=== PATIENT | male | born 1985 | race Caucasian/White ===

== ENCOUNTER 2016-07-27 07:24 | Emergency (ER) | payer BC ==
[2016-07-27 07:37] VITALS: TEMP 98.1; BMI 28.8
--- NOTE | 2016-07-27 08:25 | PDOC ---
*Physical Exam - Vital Signs Last Vital Signs Temp Pulse Resp BP Pulse Ox 98.1 F 72 18 149/66 100 07/27/16 07:34 07/27/16 07:34 07/27/16 07:34 07/27/16 07:34 07/27/16 07:34 - Physical Exam Comments: 07/27/16 08:25 MIDLEVEL NOTE Pt seen by Midlevel Provider under my direct supervision. Pt interviewed and examined. Ancillary studies reviewed. I agree with plan as outlined by Midlevel Provider. 07/27/16 11:14 Laboratory Results - last 24 hr 07/27/16 07/27/16 07/27/16 08:40 08:40 08:41 WBC 11.6 H RBC 5.63 H Hgb 17.0 H Hct 50.2 H MCV 89.2 MCHC 33.8 RDW 13.5 Plt Count 218 MPV 8.5 Neutrophils % 84.2 H Lymphocytes % 10.5 Monocytes % 4.4 Eosinophils % 0.4 Basophils % 0.5 Sodium 142 Potassium 4.6 Chloride 106 Carbon Dioxide 26 Anion Gap 10 BUN 23 H Creatinine 1.0 Creat Clearance w eGFR > 60 Random Glucose 97 Calcium 9.6 Total Bilirubin 0.4 AST 33 ALT 50 Alkaline Phosphatase 48 Total Protein 7.2 Albumin 4.1 Urine Color Yellow Urine Appearance Clear Urine pH 6.0 Ur Specific [place] 1.017 Urine Protein Negative Urine Glucose (UA) Negative Urine Ketones Negative Urine Blood Negative Urine Nitrite Negative Urine Bilirubin Negative Urine Urobilinogen Negative Ur Leukocyte Esterase Negative CT scan of the abdomen and pelvis without contrast There is a 3 mm right UVJ stone with minimal hydronephrosis Patient hydrated with 1 L of normal saline, and given Flomax, and Toradol ED Treatment Course - LABORATORY CBC & Chemistry Diagram: 07/27/16 08:40 07/27/16 08:40 *DC/Admit/Observation/Transfer Diagnosis at time of Disposition: Renal colic on right side - Discharge Dispostion Disposition: HOME Condition at time of disposition: Improved - Prescriptions Prescriptions: Tamsulosin HCl [Flomax] 0.4 mg PO DAILY #7 cap.er.24h Ibuprofen [Motrin -] 800 mg PO Q6H #30 tablet Tramadol HCl 50 mg PO Q6H #12 tablet MDD 200 mg - Referrals Referrals: Oscar Shrestha MD [Primary Care Provider] - Teddy Bojorquez MD [Staff Physician] - - Patient Instructions Printed Discharge Instructions: DI for Kidney Stones Additional Instructions: You have a 3mm kidney stone on the right near your bladder. There is an 80% chance that you will pass this stone in the next 3 days. You were given a cup with strainer in an attempt to retrieve this stone. You should follow up with urology in 1 week Take medications as directed and drink plenty of fluids - Post Discharge Activity Work/School Note: Back to Work
[2016-07-27] MEDS ORDERED: KETOROLAC TROMETHAMINE 30 MG/1 ML VIAL IVPUSH ONE (08:38)
[2016-07-27] MEDS ORDERED: KETOROLAC TROMETHAMINE 30 MG/1 ML VIAL ONE (08:46)
[2016-07-27 08:58] LABS: URINE APPEARANCE CLEAR; URINE BILIRUBIN NEGATIVE (NEGATIVE); URINE BLOOD NEGATIVE (NEGATIVE); URINE COLOR YELLOW; URINE GLUCOSE (UA) NEGATIVE (NEGATIVE); URINE KETONE NEGATIVE (NEGATIVE); URINE LEUK ESTERASE NEGATIVE (NEGATIVE); URINE NITRITE NEGATIVE (NEGATIVE); URINE PROTEIN NEGATIVE (NEGATIVE); URINE UROBILINOGEN NEGATIVE E.U./dl (0.2-1.0)
[2016-07-27 09:00] LABS: BASOPHIL 0.5 % (0-2.0); EOSINOPHIL 0.4 % (0-4.5); MCH 30.2 pg (25.7-33.7); MCHC 33.8 g/dl (32.0-35.9); MEAN CELL VOLUME 89.2 fl (80-96); MEAN PLT VOLUME 8.5 fl (7.5-11.1); NEUTROPHILS 84.2 % (42.8-82.8); PLATELET COUNT 218 K/MM3 (134-434); RDW 13.5 % (11.9-15.9); WHITE BLOOD COUNT 11.6 K/mm3 (4.0-10.0)
[2016-07-27] MEDS ORDERED: SODIUM CHLORIDE 1,000 ML IV STA (09:06)
--- NOTE | 2016-07-27 09:06 | PDOC ---
History of Present Illness - General Chief Complaint: Pain Stated Complaint: UPRT ABD PAIN Time Seen by Provider: 07/27/16 08:20 History Source: Patient - History of Present Illness Occurred: reports: this morning Pain Location: reports: other Past History - Past Medical History Allergies/Adverse Reactions: Allergies Allergy/AdvReac Type Severity Reaction Status Date / Time No Known Allergies Allergy Verified 07/27/16 07:34 Home Medications: Ambulatory Orders Ibuprofen [Motrin -] 800 mg PO Q6H #30 tablet 07/27/16 Tamsulosin HCl [Flomax] 0.4 mg PO DAILY #7 cap.er.24h 07/27/16 Tramadol HCl 50 mg PO Q6H #12 tablet MDD 200 mg 07/27/16 - Psycho/Social/Smoking Cessation Hx Anxiety: No Suicidal Ideation: No Smoking History: Never smoked Have you smoked in the past 12 months: No Information on smoking cessation initiated: No Hx Alcohol Use: No Drug/Substance Use Hx: No Substance Use Type: None Review of Systems - Review of Systems Constitutional: No: Chills, Fever ABD/GI: Yes: Nausea. No: Constipated, Diarrhea, Vomiting : Yes: Flank Pain. No: Burning, Dysuria, Frequency, Hematuria Musculoskeletal: Yes: Back Pain. No: Muscle Weakness *Physical Exam - Vital Signs Last Vital Signs Temp Pulse Resp BP Pulse Ox 98.1 F 72 18 149/66 100 07/27/16 07:34 07/27/16 07:34 07/27/16 07:34 07/27/16 07:34 07/27/16 07:34 - Physical Exam General Appearance: Yes: Appropriately Dressed. No: Apparent Distress HEENT: positive: Normal Voice. negative: Scleral Icterus (R), Scleral Icterus ( L) Neck: positive: Supple Respiratory/Chest: negative: Respiratory Distress Gastrointestinal/Abdominal: positive: Soft. negative: Tender Musculoskeletal: positive: CVA Tenderness (R) Extremity: positive: Normal Inspection Integumentary: positive: Dry, Warm Neurologic: positive: Fully Oriented, Alert, Normal Mood/Affect ED Treatment Course - LABORATORY CBC & Chemistry Diagram: 07/27/16 08:40 07/27/16 08:40 - Medications Given in the ED: ED Medications Discontinued Medications Generic Name Dose Route Start Last Admin Trade Name Freq PRN Reason Stop Dose Admin Ketorolac Tromethamine 30 mg 07/27/16 08:38 07/27/16 08:50 Toradol Injection - IVPUSH 07/27/16 08:39 30 mg ONCE ONE Administration Medical Decision Making - Medical Decision Making 07/27/16 09:03 31 yo M, endorses hx of R sided sciatica, p/w sudden onset, severe flank pain that started while driving to work this am. pain a/w nausea but no vomiting. 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 No dysuria, hematuria, f/c. States pain very different from his usual sciatica. No recent tarima. No h/o renal stones See exam R flank pain w/ nausea R/o stone, ?MSK -pain control -IVF -ua -CT 07/27/16 09:07 07/27/16 10:09 07/27/16 10:13 3mm R UVK stone w/ mild hydro on CT. Labs wnl. Pt pain free now. Will dc w/ pain control, flomax and instructions to drink plenty of fluids. Urology follow -up given 07/27/16 10:24 *DC/Admit/Observation/Transfer Diagnosis at time of Disposition: Renal colic on right side - Discharge Dispostion Disposition: HOME Condition at time of disposition: Improved - Prescriptions Prescriptions: Tamsulosin HCl [Flomax] 0.4 mg PO DAILY #7 cap.er.24h Ibuprofen [Motrin -] 800 mg PO Q6H #30 tablet Tramadol HCl 50 mg PO Q6H #12 tablet MDD 200 mg - Referrals Referrals: Oscar Shrestha MD [Primary Care Provider] - Teddy Bojorquez MD [Staff Physician] - - Patient Instructions Printed Discharge Instructions: DI for Kidney Stones Additional Instructions: You have a 3mm kidney stone on the right near your bladder. There is an 80% chance that you will pass this stone in the next 3 days. You were given a cup with strainer in an attempt to retrieve this stone. You should follow up with urology in 1 week Take medications as directed and drink plenty of fluids - Post Discharge Activity Work/School Note: Back to Work
[2016-07-27 09:19] LABS: ALBUMIN 4.1 g/dl (3.4-5.0); ANION GAP 10 (8-16); BILIRUBIN,TOTAL 0.4 mg/dL (0.2-1.0); CALCIUM 9.6 mg/dL (8.5-10.1); CO2 26 mmol/L (21-32); COCKROFT - GAULT 136.36; GLUCOSE,RANDOM 97 mg/dL (74-106); SGOT/AST 33 U/L (15-37); SGPT/ALT 50 U/L (12-78); TOT PROT 7.2 g/dl (6.4-8.2)
[2016-07-27 09:20] LABS: ALK PHOS 48 U/L (45-117)
[2016-07-27] MEDS ORDERED: TAMSULOSIN HCL 0.4 MG CAP.ER.24H (FP) PO ONE (10:09)
[2016-07-27] MEDS ORDERED: TAMSULOSIN HCL 0.4 MG CAP.ER.24H (FP) ONE (10:50)
[2016-07-27 10:57] VITALS: BP 142/71; PULSE 87
== END 2016-07-27 10:57 | disposition home or self-care (01) ==
LOC: JER 07:24
PROC: 3E0337Z Introduction of Electrolytic and Water Balance Substance into Peripheral Vein, Percutaneous Approach (ICD-10-PCS; principal; 2016-07-27)
PROC: 3E0333Z Introduction of Anti-inflammatory into Peripheral Vein, Percutaneous Approach (ICD-10-PCS; 2016-07-27)
DX: N13.2 Hydronephrosis with renal and ureteral calculous obstruction (principal)
CPT/HCPCS: 36415; 74176-TC; 80053; 81003; 85025; 99284-25